=== PATIENT | male | born 1950 | race Caucasian/White ===

== ENCOUNTER → 2021-06-17 | Outpatient (CLI) | payer BC, MEDICARE ==
[~2021-06-17] MED LIST: ASPIRIN325 MG PO; CELLCEPT PO; CELLCEPT500 MG PO; CIALIS10 MG PO; CLARITIN 10MG T10 MG PO; CORGARD80 MG PO; CORICIDIN HBP1 EACH PO; CRESTOR20 MG PO; DEXILANT60 MG PO; ECONAZOLE NITRA30 GM TP; EPIVIR HBV100 MG PO; FENOFIBRATE145 MG PO; FLONASE 0.05% N16 GM; FLOVENT DISKUS50 MCG INH; HYDRALAZINE HCL25 MG PO; HYOSCYAMINE0.125 MG PO; KENALOG CREAM 080 GM EXT; KENALOG OINT 0.15 GM EXT; KEPPRA1000 MG PO; LEVSIN TAB 00.125 MG SL; MULTI-DAY VITA1 EACH PO; MULTI-VITAMIN1 EACH PO; NADOLOL80 MG PO; NEURONTIN 400400 MG PO; NORVASC 5 MG TAB5 MG PO; NOVOLOG 10100 UNITS/ INJ; NOVOLOG100 UNIT/1 SQ; PLAVIX 75 MG TA75 MG PO; PROMETHAZINE HC25 M1 PO; TOUJEO INJ; TOUJEO SQ; TRAMADOL HCL50 MG PO; VASCEPA1 GM PO; VIT B12 PO; VIT E PO; VITAMIN B-122500 MCG PO; VITAMIN D PO; VITAMIN D50000 UNIT PO; VITAMIN E400 UNIT PO
== END ==
LOC: EMI 13:00
DX: M48.061 Spinal stenosis, lumbar region without neurogenic claudication (principal); G37.3 Acute transverse myelitis in demyelinating disease of central nervous system; M51.37 Other intervertebral disc degeneration, lumbosacral region
CPT/HCPCS: 72148